=== PATIENT | male | born 2005 | race Asian ===

== ENCOUNTER 2023-07-01 20:44 | Emergency (ER) | payer OTHER ==
[~2023-07-01] VITALS: Ht 172.7 cm; Wt 61.0 kg
[2023-07-01 21:20] VITALS: BP 119/62; RESP 18; TEMP 97.9; O2SAT 100
[2023-07-01 21:23] VITALS: PULSE 74
== END 2023-07-01 23:45 | disposition left against medical advice (07) ==
LOC: ER 20:44
DX: Z53.21 Procedure and treatment not carried out due to patient leaving prior to being seen by health care provider (principal)
CPT/HCPCS: 99281